=== PATIENT | female | born 1960 | race Caucasian/White ===

== ENCOUNTER 2019-01-13 15:43 | Emergency (ER) | payer MEDICAID ==
[~2019-01-13] VITALS: Ht 165.1 cm; Wt 66.4 kg
[~2019-01-13 15:43] MED LIST: HYDR-4383 PO
[2019-01-13] MEDS ORDERED: normal saline 1000ML IV soln IVB ONE (17:45)
[2019-01-13 18:31] LABS: BASOPHILS % (AUTO) 0.8 % (0-1); EOSINOPHILS # (AUTO) 0.1 X10'3 (0-0.9); EOSINOPHILS % (AUTO) 1.8 % (0-6); HEMATOCRIT 37.7 % (35.0-45.0); HEMOGLOBIN 12.8 g/dl (12.0-16.0); LYMPHOCYTES # (AUTO) 0.8 X10'3 (1.1-4.8); LYMPHOCYTES % (AUTO) 16.5 % (21-51); MEAN CORPUSCULAR HEMOGLOBIN 30.5 PG (27.0-31.0); MEAN CORPUSCULAR HGB CONC 33.8 g/dL (33.0-36.5); MEAN PLATELET VOLUME 9.7 FL (7.4-10.4); MONOCYTES # (AUTO) 0.5 X10'3 (0-0.9); MONOCYTES % (AUTO) 10.1 % (2-12); NEUTROPHILS # (AUTO) 3.4 X10'3 (1.8-7.7); NEUTROPHILS % (AUTO) 70.8 % (42-75); PLATELET COUNT 170 X10'3 (140-440); RED BLOOD COUNT 4.19 X10'6 (4.20-5.60); RED CELL DISTRIBUTION WIDTH 13.6 % (11.5-14.5); WHITE BLOOD COUNT 4.9 X10'3 (4.5-11.0)
[2019-01-13 18:50] LABS: ALANINE AMINOTRANSFERASE 15 U/L (12-78); ALBUMIN 3.3 G/DL (3.4-5.0); ALBUMIN/GLOBULIN RATIO 0.9 (1.1-1.5); ALKALINE PHOSPHATASE 59 IU/L (46-116); ANION GAP 6 (8-16); ASPARTATE AMINO TRANSFERASE 25 U/L (10-37); BLOOD UREA NITROGEN 7 MG/DL (7-18); BUN/CREATININE RATIO 10.8 (6.6-38.0); CALCIUM 9.4 MG/DL (8.5-10.1); CHLORIDE 103 MMOL/L (99-107); CREATININE 0.65 MG/DL (0.40-0.90); GLUCOSE 147 MG/DL (70-104); POTASSIUM 3.3 MMOL/L (3.5-5.1); SODIUM 141 MMOL/L (135-145); TOTAL CARBON DIOXIDE 32.4 MMOL/L (24-32); eGFR > 90 ML/MIN
[2019-01-13] MEDS ORDERED: POTA20TA19 PO (19:00)
[2019-01-13] MEDS ORDERED: ONDA4TAB12 PO (19:00)
[2019-01-13 19:19] VITALS: BP 90/54
== END 2019-01-13 19:25 | disposition home or self-care (01) ==
LOC: ER 15:44
DX: E87.6 Hypokalemia (principal); E86.0 Dehydration; F32.9 Major depressive disorder, single episode, unspecified; Z88.2 Allergy status to sulfonamides; Z79.899 Other long term (current) drug therapy
CPT/HCPCS: 36415; 80053; 85025; 93005; 96360; 99284; J7030

== ENCOUNTER 2019-03-08 06:03 | Inpatient (IN) | payer MEDICAID ==
[~2019-03-08] VITALS: Ht 165.1 cm; Wt 61.0 kg
[~2019-03-08 06:03] MED LIST changes: +ONDA4TAB12 PO
[2019-03-08] MEDS ORDERED: NO HOME MEDS (06:10)
[2019-03-08 06:31] LABS: BASOPHILS % (AUTO) 0.4 % (0-1); EOSINOPHILS % (AUTO) 0.5 % (0-6); HEMOGLOBIN 13.9 g/dl (12.0-16.0); LYMPHOCYTES # (AUTO) 0.6 X10'3 (1.1-4.8); LYMPHOCYTES % (AUTO) 10.4 % (21-51); MEAN CORPUSCULAR HEMOGLOBIN 31.3 PG (27.0-31.0); MEAN CORPUSCULAR HGB CONC 33.9 g/dL (33.0-36.5); MEAN CORPUSCULAR VOLUME 92.2 FL (78-98); MEAN PLATELET VOLUME 9.5 FL (7.4-10.4); MONOCYTES # (AUTO) 0.3 X10'3 (0-0.9); NEUTROPHILS # (AUTO) 4.9 X10'3 (1.8-7.7); NEUTROPHILS % (AUTO) 83.7 % (42-75); PLATELET COUNT 196 X10'3 (140-440); RED BLOOD COUNT 4.44 X10'6 (4.20-5.60); RED CELL DISTRIBUTION WIDTH 14.4 % (11.5-14.5); WHITE BLOOD COUNT 5.9 X10'3 (4.5-11.0)
[2019-03-08 06:37] LABS: ALANINE AMINOTRANSFERASE 24 U/L (12-78); ALBUMIN 3.7 G/DL (3.4-5.0); ALBUMIN/GLOBULIN RATIO 0.9 (1.1-1.5); ALKALINE PHOSPHATASE 71 IU/L (46-116); ANION GAP 9 (8-16); ASPARTATE AMINO TRANSFERASE 26 U/L (10-37); BILIRUBIN,TOTAL 0.6 MG/DL (0.1-1.0); BLOOD UREA NITROGEN 21 MG/DL (7-18); BUN/CREATININE RATIO 27.6 (6.6-38.0); CALCIUM 9.5 MG/DL (8.5-10.1); CHLORIDE 104 MMOL/L (99-107); CREATININE 0.76 MG/DL (0.40-0.90); GLUCOSE 146 MG/DL (70-104); POTASSIUM 4.2 MMOL/L (3.5-5.1); SODIUM 140 MMOL/L (135-145); TOTAL CARBON DIOXIDE 26.9 MMOL/L (24-32); TOTAL PROTEIN 7.8 G/DL (6.4-8.2); eGFR 78 ML/MIN
[2019-03-08] MEDS ORDERED: ketorolac trometh inj. 60 MG/2 ML VIAL IM ONE (06:40)
[2019-03-08] MEDS ORDERED: ondansetron/PF 4mg/2ml inj IV ONE (06:40)
[2019-03-08 06:51] LABS: URINE HCG NEGATIVE (NEG)
[2019-03-08 06:53] LABS: CLARITY,URINE CLOUDY (Clear); COLOR,URINE YELLOW (Yellow); GLUCOSE, URINE NEGATIVE (Neg); KETONES,URINE TRACE mg/dl (Neg); LEUKOCYTE ESTERASE ,URINE TRACE (Neg); NITRITES, URINE NEGATIVE (Neg); OCCULT BLOOD,URINE LARGE (Neg); PH,URINE 5.5 (4.8-8.0); PROTEIN,URINE 30 mg/dl (Neg); UROBILINOGEN,URINE 0.2 E.U/dL (0.2-1.0)
[2019-03-08] MEDS ORDERED: normal saline 1000ML IV soln IVB ONE (06:55)
[2019-03-08 06:56] LABS: UA COLLECTION TYPE CLN CATCH MIDSTREAM
--- NOTE | 2019-03-08 06:59 | NUR ---
o2 sat while pt sleeping dropped to 60% on ra. aware
[2019-03-08 07:09] LABS: CAL OXALATE CRYSTALS 1+ /HPF (NEGATIVE)
[2019-03-08 07:10] LABS: BACTERIA,URINE 2+ /HPF (Neg); MUCUS STRANDS FEW /LPF (Neg); RBC,URINE TNTC /HPF (0-2); SQUAMOUS EPITHELIAL CELL,UR FEW /LPF (FEW); TRANSITIONAL EPI CELLS,URINE FEW /HPF
[2019-03-08] MEDS ORDERED: CefTRIAXone 2gm/D5W 50ml 50 ML IV ONE (07:40)
[2019-03-08] MEDS ORDERED: normal saline 1000ml 1,000 ML IV SCH (09:14)
[2019-03-08] MEDS ORDERED: potassium Cl 20 mEq SR tablet PO PRN ×2 (09:15)
[2019-03-08] MEDS ORDERED: potassium CL 10mEq/100ml bag 100 ML IV PRN ×2 (09:15)
[2019-03-08] MEDS ORDERED: magnesium Cl slow-release 64mg tablet PO PRN (09:15)
[2019-03-08] MEDS ORDERED: magnesium 2GM in 50ml NS 50 ML IV PRN (09:15)
[2019-03-08] MEDS ORDERED: ondansetron/PF 4mg/2ml inj IV PRN (09:15)
[2019-03-08] MEDS ORDERED: morphine 2 MG/ML inj. syringe IV PRN ×2 (09:15)
[2019-03-08] MEDS ORDERED: magnesium hydroxide 30ml (MOM) UD suspension PO PRN (09:15)
[2019-03-08] MEDS ORDERED: acetaminophen 325mg tablet PO PRN (09:15)
[2019-03-08] MEDS ORDERED: HYDROcodone/acetaminophen 5mg/325mg tablet PO PRN (09:15)
[2019-03-08] MEDS ORDERED: mag hydrox/Alum hydrox/simeth 30ml oral suspension PO PRN (09:15)
[2019-03-08] MEDS ORDERED: magnesium 4gm in 100ml NS 100 ML IV PRN (09:15)
--- NOTE | 2019-03-08 13:05 | NUR ---
DR RON CALLED PT KEEPS INQUIRING TO EAT. REPORTS THAT IF PT PAIN MODERATELY CONTROLLED PT MAY EAT BUT WILL NOT BE ABLE TO HAVE PROCEEDURE UNTIL TOMORROW. PT WANTING TO CALL HER SISTER BEFORE SHE MAKES DECISION. REPORTING OFF TO PRIMARY RN JANINE.
[2019-03-08] MEDS ORDERED: MULT1TAB74 PO (13:34)
[2019-03-08 13:56] VITALS: BP 116/74
--- NOTE | 2019-03-08 13:57 | NUR ---
RECEIVED REPORT FROM MADIE MEHTA IN ED. PATIENT ARRIVED TO ROOM 350B, VITAL SIGNS STABLE, PT REPORTS MINIMAL PAIN. WILL CONTINUE TO MONITOR.
[2019-03-08] MEDS: normal saline 1000ml 1,000 ML IV SCH (17:24)
--- NOTE | 2019-03-08 18:26 | NUR ---
Problems reprioritized. Patient report given, questions answered & plan of care reviewed with Roselyn Cárdenas RN.
[2019-03-08 20:00] VITALS: BP 125/76
[2019-03-08] MEDS: heparin, porcine 5000 units/ml vial SQ SCH (20:59)
[2019-03-08] MEDS: tamsulosin 0.4mg capsule PO SCH (20:59)
[2019-03-08 23:22] VITALS: BP 110/65
[2019-03-09] MEDS: normal saline 1000ml 1,000 ML IV SCH ×2 (02:51→15:40)
[2019-03-09 06:02] LABS: BASOPHILS % (AUTO) 0.9 % (0-1); EOSINOPHILS # (AUTO) 0.1 X10'3 (0-0.9); EOSINOPHILS % (AUTO) 4.5 % (0-6); HEMATOCRIT 31.1 % (35.0-45.0); HEMOGLOBIN 10.5 g/dl (12.0-16.0); LYMPHOCYTES # (AUTO) 0.8 X10'3 (1.1-4.8); MEAN CORPUSCULAR HEMOGLOBIN 31.3 PG (27.0-31.0); MEAN CORPUSCULAR HGB CONC 33.9 g/dL (33.0-36.5); MEAN CORPUSCULAR VOLUME 92.5 FL (78-98); MEAN PLATELET VOLUME 9.3 FL (7.4-10.4); MONOCYTES # (AUTO) 0.3 X10'3 (0-0.9); NEUTROPHILS # (AUTO) 2.1 X10'3 (1.8-7.7); NEUTROPHILS % (AUTO) 62.6 % (42-75); PLATELET COUNT 144 X10'3 (140-440); RED BLOOD COUNT 3.36 X10'6 (4.20-5.60); RED CELL DISTRIBUTION WIDTH 14.3 % (11.5-14.5); WHITE BLOOD COUNT 3.3 X10'3 (4.5-11.0)
--- NOTE | 2019-03-09 06:20 | NUR ---
Problems reprioritized. Patient report given, questions answered & plan of care reviewed with MADIE Meyer.
[2019-03-09 06:32] LABS: ALBUMIN 2.6 G/DL (3.4-5.0); ANION GAP 6 (8-16); BLOOD UREA NITROGEN 14 MG/DL (7-18); BUN/CREATININE RATIO 25.5 (6.6-38.0); CALCIUM 8.9 MG/DL (8.5-10.1); CHLORIDE 109 MMOL/L (99-107); CREATININE 0.55 MG/DL (0.40-0.90); GLUCOSE 97 MG/DL (70-104); MAGNESIUM 1.8 MG/DL (1.5-2.4); SODIUM 143 MMOL/L (135-145); TOTAL CARBON DIOXIDE 27.8 MMOL/L (24-32); eGFR > 90 ML/MIN
--- NOTE | 2019-03-09 06:45 | NUR ---
Patient in room [facility]. I have received report from Roselyn Cárdenas RN and had the opportunity to ask questions and assume patient care.
[2019-03-09] MEDS: heparin, porcine 5000 units/ml vial SQ SCH ×2 (07:48→20:40)
[2019-03-09] MEDS: CefTRIAXone 2gm/D5W 50ml 50 ML IV SCH (07:48)
[2019-03-09 08:00] VITALS: BP 100/64
[2019-03-09] MEDS: K and/or MAG REPLACEMENT MC SCH (08:00)
[2019-03-09 12:00] VITALS: BP 93/53
[2019-03-09 18:00] VITALS: BP 127/80
--- NOTE | 2019-03-09 18:46 | NUR ---
Problems reprioritized. Patient report given, questions answered & plan of care reviewed with MADIE Cavanaugh.
--- NOTE | 2019-03-09 18:47 | NUR ---
Patient in room [facility]. I have received report from MADIE Meyer and had the opportunity to ask questions and assume patient care.
[2019-03-09] MEDS: acetaminophen 325mg tablet PO PRN (20:41)
[2019-03-09] MEDS: tamsulosin 0.4mg capsule PO SCH (20:41)
[2019-03-10] VITALS: BP 117/81
[2019-03-10] MEDS: normal saline 1000ml 1,000 ML IV SCH ×3 (00:42→20:47)
--- NOTE | 2019-03-10 06:25 | NUR ---
Problems reprioritized. Patient report given, questions answered & plan of care reviewed with MADIE Dial.
--- NOTE | 2019-03-10 06:30 | NUR ---
Patient in room [facility]. I have received report from Yojana RAMACHANDRAN and had the opportunity to ask questions and assume patient care.
[2019-03-10 07:00] VITALS: BP 106/68
--- NOTE | 2019-03-10 07:07 | NUR ---
Patient in room [facility]. I have received report from Mao RAMACHANDRAN and had the opportunity to ask questions and assume patient care.
[2019-03-10] MEDS: K and/or MAG REPLACEMENT MC SCH (07:52)
[2019-03-10] MEDS: CefTRIAXone 2gm/D5W 50ml 50 ML IV SCH (07:54)
[2019-03-10] MEDS: heparin, porcine 5000 units/ml vial SQ SCH ×2 (07:55→20:41)
[2019-03-10 08:08] LABS: BASOPHILS % (AUTO) 1.3 % (0-1); EOSINOPHILS # (AUTO) 0.2 X10'3 (0-0.9); EOSINOPHILS % (AUTO) 7.3 % (0-6); HEMATOCRIT 37.4 % (35.0-45.0); HEMOGLOBIN 12.6 g/dl (12.0-16.0); LYMPHOCYTES # (AUTO) 0.8 X10'3 (1.1-4.8); LYMPHOCYTES % (AUTO) 26.9 % (21-51); MEAN CORPUSCULAR HEMOGLOBIN 31.1 PG (27.0-31.0); MEAN CORPUSCULAR HGB CONC 33.6 g/dL (33.0-36.5); MEAN CORPUSCULAR VOLUME 92.5 FL (78-98); MEAN PLATELET VOLUME 9.1 FL (7.4-10.4); MONOCYTES # (AUTO) 0.3 X10'3 (0-0.9); MONOCYTES % (AUTO) 10.7 % (2-12); NEUTROPHILS # (AUTO) 1.7 X10'3 (1.8-7.7); NEUTROPHILS % (AUTO) 53.8 % (42-75); PLATELET COUNT 161 X10'3 (140-440); RED BLOOD COUNT 4.04 X10'6 (4.20-5.60); RED CELL DISTRIBUTION WIDTH 14.6 % (11.5-14.5); WHITE BLOOD COUNT 3.1 X10'3 (4.5-11.0)
[2019-03-10 08:20] LABS: ALBUMIN 2.9 G/DL (3.4-5.0); ANION GAP 4 (8-16); BLOOD UREA NITROGEN 8 MG/DL (7-18); BUN/CREATININE RATIO 16.3 (6.6-38.0); CALCIUM 9.3 MG/DL (8.5-10.1); CHLORIDE 109 MMOL/L (99-107); CREATININE 0.49 MG/DL (0.40-0.90); GLUCOSE 89 MG/DL (70-104); MAGNESIUM 1.6 MG/DL (1.5-2.4); SODIUM 142 MMOL/L (135-145); TOTAL CARBON DIOXIDE 29.3 MMOL/L (24-32); eGFR > 90 ML/MIN
[2019-03-10] MEDS: acetaminophen 325mg tablet PO PRN (10:47)
[2019-03-10 11:00] VITALS: BP 96/56
--- NOTE | 2019-03-10 16:47 | NUR ---
Student documentation: I have reviewed all interventions, assessments performed and documented by Ryan LOCKWOOD
[2019-03-10 17:04] VITALS: BP 114/76
[2019-03-10 18:00] VITALS: BP 126/79
[2019-03-10] MEDS ORDERED: FLU VACC QS2019-20 36MOS UP/PF 60 MCG/0.5 ML SYRINGE IMVAC ONE (18:00)
--- NOTE | 2019-03-10 18:30 | NUR ---
Patient in room [facility]. I have received report from MADEI Dial and had the opportunity to ask questions and assume patient care.
[2019-03-10] MEDS: tamsulosin 0.4mg capsule PO SCH (20:40)
[2019-03-11 00:51] VITALS: BP 119/72
[2019-03-11 05:19] LABS: BASOPHILS % (AUTO) 1.3 % (0-1); EOSINOPHILS # (AUTO) 0.2 X10'3 (0-0.9); EOSINOPHILS % (AUTO) 7.7 % (0-6); HEMOGLOBIN 10.9 g/dl (12.0-16.0); LYMPHOCYTES # (AUTO) 0.7 X10'3 (1.1-4.8); MEAN CORPUSCULAR HEMOGLOBIN 31.5 PG (27.0-31.0); MEAN CORPUSCULAR HGB CONC 34.2 g/dL (33.0-36.5); MEAN CORPUSCULAR VOLUME 92.2 FL (78-98); MEAN PLATELET VOLUME 8.6 FL (7.4-10.4); MONOCYTES # (AUTO) 0.3 X10'3 (0-0.9); MONOCYTES % (AUTO) 10.7 % (2-12); NEUTROPHILS # (AUTO) 1.7 X10'3 (1.8-7.7); NEUTROPHILS % (AUTO) 57.3 % (42-75); PLATELET COUNT 155 X10'3 (140-440); RED BLOOD COUNT 3.47 X10'6 (4.20-5.60); RED CELL DISTRIBUTION WIDTH 14.6 % (11.5-14.5); WHITE BLOOD COUNT 2.9 X10'3 (4.5-11.0)
[2019-03-11 05:31] LABS: ALBUMIN 2.6 G/DL (3.4-5.0); ANION GAP 4 (8-16); BLOOD UREA NITROGEN 7 MG/DL (7-18); BUN/CREATININE RATIO 12.5 (6.6-38.0); CALCIUM 9.4 MG/DL (8.5-10.1); CHLORIDE 113 MMOL/L (99-107); CREATININE 0.56 MG/DL (0.40-0.90); GLUCOSE 91 MG/DL (70-104); MAGNESIUM 1.7 MG/DL (1.5-2.4); POTASSIUM 4.3 MMOL/L (3.5-5.1); SODIUM 148 MMOL/L (135-145); eGFR > 90 ML/MIN
[2019-03-11] MEDS: normal saline 1000ml 1,000 ML IV SCH (05:50)
--- NOTE | 2019-03-11 06:27 | NUR ---
Problems reprioritized. Patient report given, questions answered & plan of care reviewed with MADIE Dial.
[2019-03-11 06:34] LABS: ANISOCYTOSIS 1+; PLATELET ESTIMATE NORMAL; TOTAL CELLS COUNTED 100
--- NOTE | 2019-03-11 07:05 | NUR ---
Patient in room [facility]. I have received report from Mao RAMACHANDRAN and had the opportunity to ask questions and assume patient care.
[2019-03-11] MEDS: CefTRIAXone 2gm/D5W 50ml 50 ML IV SCH (09:20)
[2019-03-11] MEDS: heparin, porcine 5000 units/ml vial SQ SCH (09:21)
[2019-03-11] MEDS ORDERED: tamsulosin capsule PO (11:27)
[2019-03-11] MEDS ORDERED: AMOX-419 PO (11:42)
== END 2019-03-11 14:10 | disposition home or self-care (01) | DRG 463 ==
LOC: ER 06:04 → ED HOLD 09:28 → SUR 3N 13:36
PROVIDERS: ADMIT Hospitalist; ATTEND Hospitalist
DX: N13.6 Pyonephrosis (principal); J90 Pleural effusion, not elsewhere classified; F32.9 Major depressive disorder, single episode, unspecified; K59.00 Constipation, unspecified; G47.30 Sleep apnea, unspecified; Z88.2 Allergy status to sulfonamides; Z83.3 Family history of diabetes mellitus; Z84.1 Family history of disorders of kidney and ureter; Z87.442 Personal history of urinary calculi; Z90.49 Acquired absence of other specified parts of digestive tract
CPT/HCPCS: 36415; 74176; 80048; 80053; 81001; 81025; 83735; 85025; 85610; 87081; 87088; 96361; 96365; 96375; 99285; G0378; J0696; J1644; J1885; J2405; J7030; Q2037

== ENCOUNTER 2019-07-22 14:30 | Emergency (ER) | payer MEDICAID ==
[~2019-07-22] VITALS: Ht 165.1 cm; Wt 54.5 kg
[~2019-07-22 14:30] MED LIST changes: -HYDR-4383 PO; +MULT1TAB74 PO; -ONDA4TAB12 PO; +tamsulosin capsule PO
--- NOTE | 2019-07-22 14:55 | NUR ---
Pt ambulated to the restroom without any difficulty.
[2019-07-22] MEDS ORDERED: acetaminophen 325mg tablet PO ONE (15:30)
[2019-07-22 15:51] VITALS: BP 112/54
== END 2019-07-22 16:24 | disposition home or self-care (01) ==
LOC: ER 14:30
DX: S00.01XA Abrasion of scalp, initial encounter (principal); F32.9 Major depressive disorder, single episode, unspecified; Z88.2 Allergy status to sulfonamides; Z79.899 Other long term (current) drug therapy; Y93.89 Activity, other specified; W18.39XA Other fall on same level, initial encounter; Y92.89 Other specified places as the place of occurrence of the external cause; Y99.8 Other external cause status
CPT/HCPCS: 99283

== ENCOUNTER 2021-12-28 23:41 | Emergency (ER) | payer OTHER, MEDICAID ==
[~2021-12-28] VITALS: Ht 165.1 cm; Wt 68.2 kg
[~2021-12-28 23:41] MED LIST changes: +MULT-620 PO; -MULT1TAB74 PO
[2021-12-28] MEDS ORDERED: acetaminophen 325mg tablet PO ONE (23:55)
[2021-12-29 01:14] LABS: BASOPHILS % (AUTO) 0.8 % (0-1); EOSINOPHILS # (AUTO) 0.1 X10'3 (0-0.9); EOSINOPHILS % (AUTO) 2.9 % (0-6); HEMOGLOBIN 12.9 g/dl (12.0-16.0); LYMPHOCYTES # (AUTO) 0.7 X10'3 (1.1-4.8); LYMPHOCYTES % (AUTO) 15.5 % (21-51); MEAN CORPUSCULAR HGB CONC 33.1 g/dL (33.0-36.5); MEAN CORPUSCULAR VOLUME 90.7 FL (78-98); MEAN PLATELET VOLUME 9.3 FL (7.4-10.4); MONOCYTES # (AUTO) 0.4 X10'3 (0-0.9); MONOCYTES % (AUTO) 8.5 % (2-12); NEUTROPHILS # (AUTO) 3.1 X10'3 (1.8-7.7); NEUTROPHILS % (AUTO) 72.3 % (42-75); PLATELET COUNT 182 X10'3 (140-440); WHITE BLOOD COUNT 4.3 X10'3 (4.5-11.0)
[2021-12-29 01:21] LABS: ALBUMIN 3.5 G/DL (3.4-5.0); ANION GAP 6 (8-16); BILIRUBIN,TOTAL 0.6 MG/DL (0.1-1.0); BLOOD UREA NITROGEN 12 MG/DL (7-18); BUN/CREATININE RATIO 12.4 (6.6-38.0); CALCIUM 9.4 MG/DL (8.5-10.1); CHLORIDE 104 MMOL/L (99-107); CREATININE 0.97 MG/DL (0.40-0.90); GLUCOSE 141 MG/DL (70-104); POTASSIUM 4.2 MMOL/L (3.5-5.1); SODIUM 142 MMOL/L (135-145); TOTAL CARBON DIOXIDE 32.3 MMOL/L (24-32); TOTAL PROTEIN 7.5 G/DL (6.4-8.2); eGFR 59 ML/MIN
[2021-12-29 01:22] LABS: ALANINE AMINOTRANSFERASE 6 U/L (12-78); ALBUMIN/GLOBULIN RATIO 0.9 (1.1-1.5); ALKALINE PHOSPHATASE 83 IU/L (46-116); ASPARTATE AMINO TRANSFERASE 21 U/L (10-37); ETHANOL < 0.010 GM/DL (0.0-0.010)
--- NOTE | 2021-12-29 01:29 | NUR ---
PT COMPLAINING OF CP AND PALPITATIONS. AWARE.
[2021-12-29] MEDS ORDERED: bacitracin 15gm ointment TP ONE (01:35)
[2021-12-29] MEDS ORDERED: MORP15TA PO (02:09)
[2021-12-29 02:46] VITALS: BP 93/68
[2022-01-02] MEDS ORDERED: HYDR-3972 PO ×2 (18:14→19:52)
== END 2021-12-29 02:22 | disposition home or self-care (01) ==
LOC: ER 23:42
DX: S00.81XA Abrasion of other part of head, initial encounter (principal); S00.31XA Abrasion of nose, initial encounter; S80.212A Abrasion, left knee, initial encounter; Z88.2 Allergy status to sulfonamides; Z79.899 Other long term (current) drug therapy; W01.0XXA Fall on same level from slipping, tripping and stumbling without subsequent striking against object, initial encounter; Y93.01 Activity, walking, marching and hiking; Y92.098 Other place in other non-institutional residence as the place of occurrence of the external cause; Y99.8 Other external cause status
CPT/HCPCS: 36415; 72125; 73090; 73564; 80053; 80320; 85025; 99285

== ENCOUNTER 2023-08-14 17:30 | Inpatient (IN) | payer OTHER, MEDICAID ==
[~2023-08-14] VITALS: Ht 165.1 cm; Wt 54.0 kg
[~2023-08-14 17:30] MED LIST changes: +HYDR-3972 PO
[2023-08-14 18:18] LABS: BASOPHILS % (AUTO) 0.7 % (0-1); EOSINOPHILS # (AUTO) 0.1 X10'3 (0-0.9); EOSINOPHILS % (AUTO) 1.7 % (0-6); HEMATOCRIT 41.1 % (35.0-45.0); HEMOGLOBIN 13.7 g/dl (12.0-16.0); LYMPHOCYTES # (AUTO) 0.7 X10'3 (1.1-4.8); LYMPHOCYTES % (AUTO) 14.9 % (21-51); MEAN CORPUSCULAR HGB CONC 33.3 g/dL (33.0-36.5); MEAN CORPUSCULAR VOLUME 93.1 FL (78-98); MEAN PLATELET VOLUME 8.9 FL (7.4-10.4); MONOCYTES # (AUTO) 0.3 X10'3 (0-0.9); MONOCYTES % (AUTO) 6.7 % (2-12); NEUTROPHILS # (AUTO) 3.6 X10'3 (1.8-7.7); PLATELET COUNT 151 X10'3 (140-440); RED BLOOD COUNT 4.41 X10'6 (4.20-5.60); RED CELL DISTRIBUTION WIDTH 14.9 % (11.5-14.5); WHITE BLOOD COUNT 4.7 X10'3 (4.5-11.0)
[2023-08-14 18:32] LABS: ANION GAP 9 (8-16); BLOOD UREA NITROGEN 17 MG/DL (7-18); CALCIUM 9.2 MG/DL (8.5-10.1); CHLORIDE 108 MMOL/L (99-107); CREATININE 0.74 MG/DL (0.40-0.90); GLUCOSE 119 MG/DL (70-104); POTASSIUM 4.9 MMOL/L (3.5-5.1); PRO BRAIN NATRIURETIC PEPTIDE 219 PG/ML (0-125); SODIUM 143 MMOL/L (135-145); TOTAL CARBON DIOXIDE 26.3 MMOL/L (24-32); eCRCL 68 ML/MIN; eGFR 80 ML/MIN
[2023-08-14 20:24] LABS: CREATINE KINASE 83 U/L (26-192)
[2023-08-14] MEDS ORDERED: potassium Cl 40MEQ/1/2NS 520ml 520 ML IV PRN (21:50)
[2023-08-14] MEDS ORDERED: potassium Cl 20 mEq SR tablet PO PRN ×2 (21:50)
[2023-08-14] MEDS ORDERED: ondansetron/PF 4mg/2ml inj IV PRN (21:50)
[2023-08-14] MEDS ORDERED: acetaminophen 325mg tablet PO PRN (21:50)
[2023-08-14] MEDS ORDERED: mag hydrox/Alum hydrox/simeth 30ml oral suspension PO PRN (21:50)
[2023-08-14] MEDS ORDERED: magnesium 4gm in 100ml NS 100 ML IV PRN (21:50)
[2023-08-14] MEDS ORDERED: magnesium Cl slow-release 64mg tablet PO PRN (21:50)
[2023-08-14] MEDS ORDERED: magnesium hydroxide 30ml (MOM) UD suspension PO PRN (21:50)
[2023-08-14] MEDS: normal saline 1000ml 1,000 ML IV SCH (23:11)
[2023-08-15] MEDS: diltiazem CD 120mg capsule (once-daily) PO SCH (01:05)
[2023-08-15 04:22] LABS: BASOPHILS % (AUTO) 0.8 % (0-1); EOSINOPHILS # (AUTO) 0.1 X10'3 (0-0.9); HEMOGLOBIN 12.2 g/dl (12.0-16.0); LYMPHOCYTES # (AUTO) 1.1 X10'3 (1.1-4.8); MEAN CORPUSCULAR HEMOGLOBIN 30.7 PG (27.0-31.0); MONOCYTES # (AUTO) 0.4 X10'3 (0-0.9); NEUTROPHILS # (AUTO) 2.1 X10'3 (1.8-7.7); WHITE BLOOD COUNT 3.7 X10'3 (4.5-11.0)
[2023-08-15 04:53] LABS: EOSINOPHILS % (AUTO) 2.8 % (0-6); HEMATOCRIT 36.3 % (35.0-45.0); LYMPHOCYTES % (AUTO) 29.5 % (21-51); MEAN CORPUSCULAR HGB CONC 33.5 g/dL (33.0-36.5); MEAN CORPUSCULAR VOLUME 91.7 FL (78-98); MEAN PLATELET VOLUME 9.9 FL (7.4-10.4); MONOCYTES % (AUTO) 10.3 % (2-12); NEUTROPHILS % (AUTO) 56.6 % (42-75); PLATELET COUNT 132 X10'3 (140-440); RED BLOOD COUNT 3.96 X10'6 (4.20-5.60); RED CELL DISTRIBUTION WIDTH 14.6 % (11.5-14.5)
[2023-08-15 07:17] VITALS: BP 108/61; PULSE 71; RESP 15; TEMP 97.8; O2SAT 96
[2023-08-15] MEDS: heparin, porcine 5000 units/ml vial SQ SCH (07:37)
[2023-08-15 08:57] VITALS: RESP 15; O2SAT 96
[2023-08-15 10:00] VITALS: BP 103/42; PULSE 63; RESP 16; TEMP 98.2; O2SAT 95
[2023-08-15] MEDS: tamsulosin 0.4mg capsule PO SCH (20:15)
[2023-08-15 20:21] LABS: BILIRUBIN,URINE NEGATIVE (Neg); CLARITY,URINE SLIGHTLY CLOUDY (Clear); COLOR,URINE STRAW (Yellow); GLUCOSE, URINE NEGATIVE (Neg); KETONES,URINE NEGATIVE (Neg); LEUKOCYTE ESTERASE ,URINE SMALL (Neg); NITRITES, URINE NEGATIVE (Neg); OCCULT BLOOD,URINE SMALL (Neg); PH,URINE 6.5 (4.8-8.0); PROTEIN,URINE NEGATIVE (Neg); UROBILINOGEN,URINE 0.2 E.U/dL (0.2-1.0)
[2023-08-15 20:44] LABS: UA COLLECTION TYPE NON-SPECIFIED
[2023-08-15 20:45] LABS: SQUAMOUS EPITHELIAL CELL,UR MANY /LPF (FEW)
[2023-08-15 20:46] LABS: BACTERIA,URINE 1+ /HPF (Neg)
[2023-08-15 21:44] VITALS: BP 116/82; PULSE 89; RESP 16; TEMP 97.6; O2SAT 94
[2023-08-16 07:18] LABS: BASOPHILS % (AUTO) 0.8 % (0-1); EOSINOPHILS # (AUTO) 0.2 X10'3 (0-0.9); EOSINOPHILS % (AUTO) 5.8 % (0-6); HEMATOCRIT 34.5 % (35.0-45.0); HEMOGLOBIN 11.3 g/dl (12.0-16.0); LYMPHOCYTES # (AUTO) 0.9 X10'3 (1.1-4.8); LYMPHOCYTES % (AUTO) 28.1 % (21-51); MEAN CORPUSCULAR HEMOGLOBIN 30.3 PG (27.0-31.0); MEAN CORPUSCULAR HGB CONC 32.8 g/dL (33.0-36.5); MEAN CORPUSCULAR VOLUME 92.2 FL (78-98); MEAN PLATELET VOLUME 9.3 FL (7.4-10.4); MONOCYTES # (AUTO) 0.3 X10'3 (0-0.9); MONOCYTES % (AUTO) 8.5 % (2-12); NEUTROPHILS # (AUTO) 1.8 X10'3 (1.8-7.7); NEUTROPHILS % (AUTO) 56.8 % (42-75); PLATELET COUNT 128 X10'3 (140-440); RED BLOOD COUNT 3.74 X10'6 (4.20-5.60); RED CELL DISTRIBUTION WIDTH 14.5 % (11.5-14.5); WHITE BLOOD COUNT 3.1 X10'3 (4.5-11.0)
[2023-08-16 07:24] LABS: ALANINE AMINOTRANSFERASE 12 U/L (12-78); ALBUMIN 2.4 G/DL (3.4-5.0); ALBUMIN/GLOBULIN RATIO 0.8 (1.1-1.5); ALKALINE PHOSPHATASE 67 IU/L (46-116); ANION GAP 5 (8-16); ASPARTATE AMINO TRANSFERASE 23 U/L (10-37); BILIRUBIN,TOTAL 0.6 MG/DL (0.1-1.0); BLOOD UREA NITROGEN 12 MG/DL (7-18); BUN/CREATININE RATIO 20.3 (10.0-20.0); CHLORIDE 111 MMOL/L (99-107); CREATININE 0.59 MG/DL (0.40-0.90); GLUCOSE 97 MG/DL (70-104); POTASSIUM 4.1 MMOL/L (3.5-5.1); SODIUM 148 MMOL/L (135-145); TOTAL PROTEIN 5.5 G/DL (6.4-8.2); eCRCL 85 ML/MIN; eGFR > 90 ML/MIN
[2023-08-16] MEDS: multivitamins, therapeutics tablet PO SCH (08:59)
[2023-08-16 10:00] VITALS: BP 91/50; PULSE 73; RESP 18; TEMP 97.5; O2SAT 93
[2023-08-16] MEDS ORDERED: normal saline 1000ml 1,000 ML IV ONE (14:35)
[2023-08-16] MEDS: FOSFOMYCIN TROMETHAMINE 3 GM PACKET PO ONE (15:50)
== END 2023-08-16 16:26 | disposition home health service (06) | DRG 93 ==
LOC: ER 17:30 → ED HOLD 21:53 → ORTHO 4S 08-15 07:00
PROVIDERS: ADMIT Surgery Surgical Critical Care; ATTEND Family Medicine
DX: G71.11 Myotonic muscular dystrophy (principal); F32.A Depression, unspecified; I48.0 Paroxysmal atrial fibrillation; Z88.2 Allergy status to sulfonamides; Z90.49 Acquired absence of other specified parts of digestive tract; Z90.710 Acquired absence of both cervix and uterus
CPT/HCPCS: 36415; 70450; 71045; 80048; 80053; 81001; 82550; 83880; 84484; 85025; 87081; 93005; 93306; 97161; 97530; 99285; G0378; J1644; J7030

== ENCOUNTER 2023-12-13 22:38 | Emergency (ER) | payer OTHER, MEDICAID ==
[~2023-12-13] VITALS: Ht 165.1 cm; Wt 52.3 kg
[~2023-12-13 22:38] MED LIST changes: +ASPI-1265 PO; +METO-395 PO; +MIDO2.5T14 PO
[2023-12-13 22:41] VITALS: TEMP 98
[2023-12-13 23:21] LABS: BASOPHILS % (AUTO) 0.6 % (0-1); EOSINOPHILS # (AUTO) 0.2 X10'3 (0-0.9); EOSINOPHILS % (AUTO) 2.9 % (0-6); HEMATOCRIT 37.1 % (35.0-45.0); HEMOGLOBIN 12.2 g/dl (12.0-16.0); LYMPHOCYTES # (AUTO) 1.1 X10'3 (1.1-4.8); LYMPHOCYTES % (AUTO) 20.1 % (21-51); MEAN CORPUSCULAR HEMOGLOBIN 30.5 PG (27.0-31.0); MEAN CORPUSCULAR HGB CONC 32.9 g/dL (33.0-36.5); MEAN CORPUSCULAR VOLUME 92.7 FL (78-98); MEAN PLATELET VOLUME 9.2 FL (7.4-10.4); MONOCYTES # (AUTO) 0.4 X10'3 (0-0.9); MONOCYTES % (AUTO) 6.6 % (2-12); NEUTROPHILS # (AUTO) 3.8 X10'3 (1.8-7.7); NEUTROPHILS % (AUTO) 69.8 % (42-75); PLATELET COUNT 212 X10'3 (140-440); RED CELL DISTRIBUTION WIDTH 14.9 % (11.5-14.5); WHITE BLOOD COUNT 5.5 X10'3 (4.5-11.0)
[2023-12-13 23:34] LABS: ALANINE AMINOTRANSFERASE 35 U/L (12-78); ALBUMIN 2.9 G/DL (3.4-5.0); ALBUMIN/GLOBULIN RATIO 0.9 (1.1-1.5); ALKALINE PHOSPHATASE 70 IU/L (46-116); ANION GAP 5 (8-16); ASPARTATE AMINO TRANSFERASE 19 U/L (10-37); BILIRUBIN,TOTAL 0.4 MG/DL (0.1-1.0); BLOOD UREA NITROGEN 12 MG/DL (7-18); BUN/CREATININE RATIO 16.7 (10.0-20.0); CALCIUM 9.3 MG/DL (8.5-10.1); CHLORIDE 107 MMOL/L (99-107); CREATININE 0.72 MG/DL (0.40-0.90); GLUCOSE 140 MG/DL (70-104); POTASSIUM 4.2 MMOL/L (3.5-5.1); SODIUM 146 MMOL/L (135-145); TOTAL CARBON DIOXIDE 34.4 MMOL/L (24-32); TOTAL PROTEIN 6.3 G/DL (6.4-8.2); eCRCL 67 ML/MIN; eGFR 82 ML/MIN
[2023-12-14] MEDS ORDERED: HYDR-3965 PO (01:41)
[2023-12-14] MEDS: HYDROcodone/acetaminophen 5mg/325mg tablet PO ONE (01:59)
[2023-12-14 08:46] VITALS: BP 133/67; PULSE 77; RESP 16; O2SAT 94
== END 2023-12-14 08:50 | disposition home or self-care (01) ==
LOC: ER 22:39
DX: R53.1 Weakness (principal); M25.561 Pain in right knee; M79.661 Pain in right lower leg; M25.571 Pain in right ankle and joints of right foot; I48.91 Unspecified atrial fibrillation; F32.A Depression, unspecified; G71.09 Other specified muscular dystrophies; Z88.2 Allergy status to sulfonamides; Z79.82 Long term (current) use of aspirin; Z79.899 Other long term (current) drug therapy; Z79.1 Long term (current) use of non-steroidal anti-inflammatories (NSAID); W19.XXXA Unspecified fall, initial encounter; Y93.89 Activity, other specified; Y92.89 Other specified places as the place of occurrence of the external cause; Y99.8 Other external cause status
CPT/HCPCS: 36415; 73564; 73590; 73630; 80053; 85025; 93005; 99285; A6449; J7030

== ENCOUNTER 2023-12-22 00:19 | Emergency (ER) | payer OTHER, MEDICAID ==
[~2023-12-22] VITALS: Ht 160 cm; Wt 54.5 kg
[~2023-12-22 00:19] MED LIST changes: +HYDR-3965 PO
[2023-12-22 02:30] LABS: BASOPHILS # (AUTO) 0.1 X10'3 (0-0.2); BASOPHILS % (AUTO) 1.2 % (0-1); EOSINOPHILS # (AUTO) 0.1 X10'3 (0-0.9); HEMATOCRIT 34.6 % (35.0-45.0); HEMOGLOBIN 11.5 g/dl (12.0-16.0); LYMPHOCYTES # (AUTO) 0.8 X10'3 (1.1-4.8); LYMPHOCYTES % (AUTO) 16.4 % (21-51); MEAN CORPUSCULAR HEMOGLOBIN 30.6 PG (27.0-31.0); MEAN CORPUSCULAR HGB CONC 33.3 g/dL (33.0-36.5); MEAN PLATELET VOLUME 8.9 FL (7.4-10.4); MONOCYTES # (AUTO) 0.5 X10'3 (0-0.9); MONOCYTES % (AUTO) 9.9 % (2-12); NEUTROPHILS # (AUTO) 3.3 X10'3 (1.8-7.7); NEUTROPHILS % (AUTO) 70.5 % (42-75); PLATELET COUNT 137 X10'3 (140-440); RED BLOOD COUNT 3.76 X10'6 (4.20-5.60); RED CELL DISTRIBUTION WIDTH 15.4 % (11.5-14.5); WHITE BLOOD COUNT 4.7 X10'3 (4.5-11.0)
[2023-12-22 02:35] LABS: ANION GAP 5 (8-16); BLOOD UREA NITROGEN 9 MG/DL (7-18); BUN/CREATININE RATIO 14.1 (10.0-20.0); CALCIUM 9.3 MG/DL (8.5-10.1); CHLORIDE 108 MMOL/L (99-107); CREATININE 0.64 MG/DL (0.40-0.90); GLUCOSE 103 MG/DL (70-104); MAGNESIUM 1.9 MG/DL (1.5-2.4); POTASSIUM 4.4 MMOL/L (3.5-5.1); SODIUM 145 MMOL/L (135-145); TOTAL CARBON DIOXIDE 31.8 MMOL/L (24-32); eCRCL 75 ML/MIN; eGFR > 90 ML/MIN
[2023-12-22] MEDS: normal saline 1000ML IV soln IVB ONE (02:35)
[2023-12-22 06:23] VITALS: PULSE 71; TEMP 98.2; O2SAT 92
[2023-12-22 09:49] VITALS: BP 118/67; RESP 15
== END 2023-12-22 10:04 | disposition home or self-care (01) ==
LOC: ER 00:20
DX: R53.1 Weakness (principal); I48.91 Unspecified atrial fibrillation; F32.A Depression, unspecified; Z88.2 Allergy status to sulfonamides; Z79.82 Long term (current) use of aspirin; Z79.1 Long term (current) use of non-steroidal anti-inflammatories (NSAID); Z79.899 Other long term (current) drug therapy; W19.XXXA Unspecified fall, initial encounter; Y93.89 Activity, other specified; Y92.89 Other specified places as the place of occurrence of the external cause; Y99.8 Other external cause status
CPT/HCPCS: 36415; 73564; 73610; 80048; 83735; 84145; 85025; 99285; J7030

== ENCOUNTER 2024-06-05 14:09 | Inpatient (IN) | payer OTHER, MEDICAID ==
[~2024-06-05] VITALS: Ht 162.6 cm; Wt 45.5 kg
[~2024-06-05 14:09] MED LIST changes: -ASPI-1265 PO; -HYDR-3965 PO; -MIDO2.5T14 PO; +MIDO2.5T3 PO
[2024-06-05 15:27] LABS: EOSINOPHILS # (AUTO) 0.1 X10'3 (0-0.9); HEMATOCRIT 40.4 % (35.0-45.0); HEMOGLOBIN 13.4 g/dl (12.0-16.0); MEAN CORPUSCULAR HEMOGLOBIN 31.6 PG (27.0-31.0); MONOCYTES # (AUTO) 0.2 X10'3 (0-0.9); NEUTROPHILS # (AUTO) 2.2 X10'3 (1.8-7.7); NEUTROPHILS % (AUTO) 67.2 % (42-75); RED BLOOD COUNT 4.24 X10'6 (4.20-5.60); WHITE BLOOD COUNT 3.2 X10'3 (4.5-11.0)
[2024-06-05 15:28] LABS: ALANINE AMINOTRANSFERASE 21 U/L (12-78); ALBUMIN 2.9 G/DL (3.4-5.0); ALKALINE PHOSPHATASE 72 IU/L (46-116); ANION GAP 4 (8-16); ASPARTATE AMINO TRANSFERASE 22 U/L (10-37); BILIRUBIN,DIRECT 0.3 MG/DL (0-0.3); BLOOD UREA NITROGEN 9 MG/DL (7-18); BUN/CREATININE RATIO 19.1 (10.0-20.0); CALCIUM 9.2 MG/DL (8.5-10.1); CHLORIDE 108 MMOL/L (99-107); CREATINE KINASE 169 U/L (26-192); CREATININE 0.47 MG/DL (0.40-0.90); GLUCOSE 78 MG/DL (70-104); POTASSIUM 4.5 MMOL/L (3.5-5.1); SODIUM 147 MMOL/L (135-145); TOTAL CARBON DIOXIDE 34.9 MMOL/L (24-32); TOTAL PROTEIN 5.9 G/DL (6.4-8.2); eCRCL 89 ML/MIN; eGFR > 90 ML/MIN
[2024-06-05 15:29] LABS: BASOPHILS % (AUTO) 0.9 % (0-1); EOSINOPHILS % (AUTO) 1.9 % (0-6); LYMPHOCYTES # (AUTO) 0.7 X10'3 (1.1-4.8); LYMPHOCYTES % (AUTO) 23.3 % (21-51); MEAN CORPUSCULAR HGB CONC 33.2 g/dL (33.0-36.5); MEAN CORPUSCULAR VOLUME 95.1 FL (78-98); MEAN PLATELET VOLUME 9.9 FL (7.4-10.4); MONOCYTES % (AUTO) 6.7 % (2-12); PLATELET COUNT 149 X10'3 (140-440); RED CELL DISTRIBUTION WIDTH 14.9 % (11.5-14.5)
[2024-06-05] MEDS: normal saline 1000ML IV soln IVB ONE (15:34)
[2024-06-05] MEDS: ringers solution, lacted 1,000 ML IV ONE ×2 (15:48→22:28)
[2024-06-05 16:24] LABS: BILIRUBIN,URINE SMALL (Neg); CLARITY,URINE CLEAR (Clear); GLUCOSE, URINE NEGATIVE (Neg); KETONES,URINE NEGATIVE (Neg); LEUKOCYTE ESTERASE ,URINE NEGATIVE (Neg); OCCULT BLOOD,URINE NEGATIVE (Neg); PH,URINE 5.5 (4.8-8.0); PROTEIN,URINE NEGATIVE (Neg); UROBILINOGEN,URINE 0.2 E.U/dL (0.2-1.0)
[2024-06-05 16:25] LABS: COLOR,URINE DARK YELLOW (Yellow); NITRITES, URINE NEGATIVE (Neg); UA COLLECTION TYPE STRAIGHT CATH
[2024-06-05] MEDS ORDERED: mag hydrox/Alum hydrox/simeth 30ml oral suspension PO PRN (17:10)
[2024-06-05] MEDS ORDERED: morphine 2 MG/ML inj. syringe IV PRN ×2 (17:10)
[2024-06-05] MEDS ORDERED: magnesium hydroxide 30ml (MOM) UD suspension PO PRN (17:10)
[2024-06-05] MEDS ORDERED: acetaminophen 325mg tablet PO PRN ×2 (17:10)
[2024-06-05] MEDS ORDERED: ondansetron/PF 4mg/2ml inj IV PRN (17:10)
[2024-06-05] MEDS ORDERED: ASPI-1265 PO (17:51)
[2024-06-05 18:16] LABS: PRO BRAIN NATRIURETIC PEPTIDE 840 PG/ML (0-125)
[2024-06-05] MEDS: dextrose 5%-1/2 normal saline 1,000 ML IV SCH (19:45)
[2024-06-05] MEDS: docusate sod 100mg capsule PO SCH (20:00)
[2024-06-06 02:48] LABS: EOSINOPHILS # (AUTO) 0.2 X10'3 (0-0.9); HEMOGLOBIN 12.2 g/dl (12.0-16.0); LYMPHOCYTES # (AUTO) 0.9 X10'3 (1.1-4.8); MEAN CORPUSCULAR HEMOGLOBIN 31.8 PG (27.0-31.0); MONOCYTES # (AUTO) 0.5 X10'3 (0-0.9)
[2024-06-06 02:51] LABS: BASOPHILS % (AUTO) 0.8 % (0-1); EOSINOPHILS % (AUTO) 3.6 % (0-6); HEMATOCRIT 36.2 % (35.0-45.0); LYMPHOCYTES % (AUTO) 21.6 % (21-51); MEAN CORPUSCULAR HGB CONC 33.6 g/dL (33.0-36.5); MEAN CORPUSCULAR VOLUME 94.6 FL (78-98); MEAN PLATELET VOLUME 9.5 FL (7.4-10.4); MONOCYTES % (AUTO) 12.1 % (2-12); NEUTROPHILS # (AUTO) 2.6 X10'3 (1.8-7.7); NEUTROPHILS % (AUTO) 61.9 % (42-75); PLATELET COUNT 151 X10'3 (140-440); RED BLOOD COUNT 3.83 X10'6 (4.20-5.60); RED CELL DISTRIBUTION WIDTH 15.4 % (11.5-14.5); WHITE BLOOD COUNT 4.2 X10'3 (4.5-11.0)
[2024-06-06 03:00] LABS: ALBUMIN 2.4 G/DL (3.4-5.0); ANION GAP 0 (8-16); BLOOD UREA NITROGEN 10 MG/DL (7-18); BUN/CREATININE RATIO 15.9 (10.0-20.0); CALCIUM 8.8 MG/DL (8.5-10.1); CHLORIDE 109 MMOL/L (99-107); CREATININE 0.63 MG/DL (0.40-0.90); GLUCOSE 139 MG/DL (70-104); POTASSIUM 4.2 MMOL/L (3.5-5.1); SODIUM 145 MMOL/L (135-145); TOTAL CARBON DIOXIDE 35.9 MMOL/L (24-32); eCRCL 66 ML/MIN; eGFR > 90 ML/MIN
[2024-06-06 07:34] VITALS: BP 111/69; PULSE 83; RESP 21; TEMP 97.4; O2SAT 83
[2024-06-06] MEDS: multivitamins, therapeutics tablet PO SCH (08:46)
[2024-06-06] MEDS: enoxaparin 40mg/0.4ml syringe SUBCUT SCH (08:47)
[2024-06-06] MEDS: HYDROcodone/acetaminophen 5mg/325mg tablet PO PRN (08:56)
[2024-06-06 10:00] VITALS: BP 86/58; PULSE 71; RESP 16; TEMP 97.1; O2SAT 90
[2024-06-06] MEDS: normal saline 500ml IV soln 500 ML IV ONE (10:30)
[2024-06-06 11:11] VITALS: RESP 21
[2024-06-06 11:40] VITALS: BP 98/56; PULSE 80
[2024-06-06 18:00] VITALS: BP 96/69; PULSE 87; RESP 16; TEMP 97.7; O2SAT 98
[2024-06-06] MEDS: lactose-reduced food (Ensure Enlive) - 237ml bottle PO SCH (18:29)
[2024-06-06] MEDS: FLU VACC TS2024-25(6MOS UP)/PF 45 MCG/0.5 ML SYRINGE IMVAC ONE (19:00)
[2024-06-06 20:00] VITALS: RESP 16; O2SAT 98
[2024-06-07 06:00] VITALS: BP 106/69; PULSE 82; RESP 16; TEMP 96.2; O2SAT 99
[2024-06-07 06:21] LABS: EOSINOPHILS # (AUTO) 0.1 X10'3 (0-0.9); HEMOGLOBIN 12.7 g/dl (12.0-16.0); NEUTROPHILS # (AUTO) 2.6 X10'3 (1.8-7.7); WHITE BLOOD COUNT 3.9 X10'3 (4.5-11.0)
[2024-06-07 06:23] LABS: BASOPHILS % (AUTO) 0.5 % (0-1); EOSINOPHILS % (AUTO) 3.4 % (0-6); HEMATOCRIT 38.3 % (35.0-45.0); LYMPHOCYTES # (AUTO) 0.7 X10'3 (1.1-4.8); LYMPHOCYTES % (AUTO) 16.8 % (21-51); MEAN CORPUSCULAR HEMOGLOBIN 31.8 PG (27.0-31.0); MEAN CORPUSCULAR HGB CONC 33.2 g/dL (33.0-36.5); MEAN CORPUSCULAR VOLUME 95.8 FL (78-98); MEAN PLATELET VOLUME 9.9 FL (7.4-10.4); MONOCYTES # (AUTO) 0.5 X10'3 (0-0.9); MONOCYTES % (AUTO) 12.2 % (2-12); NEUTROPHILS % (AUTO) 67.1 % (42-75); PLATELET COUNT 142 X10'3 (140-440); RED CELL DISTRIBUTION WIDTH 15.5 % (11.5-14.5)
[2024-06-07 06:32] LABS: ALBUMIN 2.6 G/DL (3.4-5.0); ANION GAP 2 (8-16); BLOOD UREA NITROGEN 7 MG/DL (7-18); BUN/CREATININE RATIO 14.6 (10.0-20.0); CALCIUM 8.9 MG/DL (8.5-10.1); CHLORIDE 108 MMOL/L (99-107); CREATININE 0.48 MG/DL (0.40-0.90); GLUCOSE 132 MG/DL (70-104); POTASSIUM 4.6 MMOL/L (3.5-5.1); SODIUM 144 MMOL/L (135-145); TOTAL CARBON DIOXIDE 34.2 MMOL/L (24-32); eCRCL 87 ML/MIN; eGFR > 90 ML/MIN
[2024-06-07] MEDS: furosemide 20MG tablet PO SCH (07:46)
[2024-06-07 08:00] VITALS: RESP 18; O2SAT 98
[2024-06-07 10:00] VITALS: BP_SYST 3; BP_SYST 99; BP_DIAS 60; PULSE 79; RESP 16; TEMP 98.6; O2SAT 96
[2024-06-07] MEDS: FLU VACC TS2024-25(6MOS UP)/PF 45 MCG/0.5 ML SYRINGE IMVAC ONE (10:58)
[2024-06-07] MEDS: furosemide 20 MG/2 ML vial IV ONE (12:46)
[2024-06-07 18:00] VITALS: BP_SYST 106; BP_SYST 99; BP_DIAS 59; BP_DIAS 65; PULSE 92; RESP 13; RESP 14; TEMP 96.7; TEMP 98.1; O2SAT 93; O2SAT 97
[2024-06-07] MEDS: furosemide 20 MG/2 ML vial IV SCH (19:21)
[2024-06-07 22:00] VITALS: PULSE 92; RESP 13; TEMP 98.1; O2SAT 93
[2024-06-08 06:00] VITALS: BP 102/62; PULSE 79; RESP 15; TEMP 97.3; O2SAT 99
[2024-06-08 06:20] LABS: BASOPHILS % (AUTO) 0.5 % (0-1); EOSINOPHILS # (AUTO) 0.1 X10'3 (0-0.9); EOSINOPHILS % (AUTO) 3.8 % (0-6); HEMATOCRIT 34.5 % (35.0-45.0); HEMOGLOBIN 11.6 g/dl (12.0-16.0); LYMPHOCYTES # (AUTO) 0.7 X10'3 (1.1-4.8); LYMPHOCYTES % (AUTO) 17.5 % (21-51); MEAN CORPUSCULAR HEMOGLOBIN 31.7 PG (27.0-31.0); MEAN CORPUSCULAR HGB CONC 33.5 g/dL (33.0-36.5); MEAN CORPUSCULAR VOLUME 94.7 FL (78-98); MEAN PLATELET VOLUME 9.3 FL (7.4-10.4); MONOCYTES # (AUTO) 0.4 X10'3 (0-0.9); MONOCYTES % (AUTO) 11.4 % (2-12); NEUTROPHILS # (AUTO) 2.5 X10'3 (1.8-7.7); NEUTROPHILS % (AUTO) 66.8 % (42-75); PLATELET COUNT 123 X10'3 (140-440); RED BLOOD COUNT 3.65 X10'6 (4.20-5.60); RED CELL DISTRIBUTION WIDTH 15.1 % (11.5-14.5); WHITE BLOOD COUNT 3.7 X10'3 (4.5-11.0)
[2024-06-08 06:40] LABS: ALBUMIN 2.5 G/DL (3.4-5.0); ANION GAP -1 (8-16); BLOOD UREA NITROGEN 14 MG/DL (7-18); BUN/CREATININE RATIO 30.4 (10.0-20.0); CALCIUM 9.5 MG/DL (8.5-10.1); CHLORIDE 104 MMOL/L (99-107); CREATININE 0.46 MG/DL (0.40-0.90); GLUCOSE 102 MG/DL (70-104); POTASSIUM 4.7 MMOL/L (3.5-5.1); SODIUM 143 MMOL/L (135-145); eCRCL 91 ML/MIN; eGFR > 90 ML/MIN
[2024-06-08 06:54] LABS: TOTAL CARBON DIOXIDE 40.4 MMOL/L (24-32)
[2024-06-08 08:00] VITALS: RESP 16; O2SAT 96
[2024-06-08 09:24] VITALS: BP 96/58; PULSE 91; RESP 15; TEMP 97.3; O2SAT 99
[2024-06-08 10:00] VITALS: BP 105/60; PULSE 75; RESP 16; TEMP 98.3; O2SAT 96
== END 2024-06-08 16:03 | DRG 291 ==
LOC: ER 14:10 → ED HOLD 17:10 → OBSVTOIN 17:10 → ORTHO 4S 06-06 07:16
PROVIDERS: ADMIT Internal Medicine; ATTEND Internal Medicine
DX: I50.33 Acute on chronic diastolic (congestive) heart failure (principal); J96.01 Acute respiratory failure with hypoxia; E87.0 Hyperosmolality and hypernatremia; F32.A Depression, unspecified; I48.91 Unspecified atrial fibrillation; G47.30 Sleep apnea, unspecified; E86.0 Dehydration; Z88.2 Allergy status to sulfonamides; Z79.899 Other long term (current) drug therapy
CPT/HCPCS: 36415; 71045; 80048; 80076; 81003; 82550; 83735; 83880; 85025; 87081; 90686; 93005; 93306; 96360; 97110; 97116; 97161; 97530; 97535; 99285; A4353; A6212; A6213; A6250; C1758; G0378; J1650; J1940; J3490; J7030; J7040; J7120

== ENCOUNTER 2024-06-12 14:13 | Inpatient (IN) | payer MEDICAID, OTHER ==
[~2024-06-12] VITALS: Ht 172.7 cm; Wt 63.6 kg
[~2024-06-12 14:13] MED LIST changes: -HYDR-3972 PO; -METO-395 PO; -MIDO2.5T3 PO; -tamsulosin capsule PO
[2024-06-12 14:34] VITALS: PULSE 113; RESP 29; O2SAT 95
[2024-06-12 14:37] LABS: BASOPHILS % (AUTO) 0.6 % (0-1); LYMPHOCYTES # (AUTO) 3.4 X10'3 (1.1-4.8); LYMPHOCYTES % (AUTO) 48.5 % (21-51); MONOCYTES # (AUTO) 0.5 X10'3 (0-0.9); NEUTROPHILS # (AUTO) 2.9 X10'3 (1.8-7.7)
[2024-06-12 14:38] LABS: EOSINOPHILS # (AUTO) 0.2 X10'3 (0-0.9); EOSINOPHILS % (AUTO) 2.3 % (0-6); HEMOGLOBIN 12.7 g/dl (12.0-16.0); MEAN CORPUSCULAR HEMOGLOBIN 31.2 PG (27.0-31.0); MEAN CORPUSCULAR HGB CONC 31.7 g/dL (33.0-36.5); MEAN CORPUSCULAR VOLUME 98.4 FL (78-98); MEAN PLATELET VOLUME 9.1 FL (7.4-10.4); MONOCYTES % (AUTO) 7.4 % (2-12); NEUTROPHILS % (AUTO) 41.2 % (42-75); PLATELET COUNT 221 X10'3 (140-440); RED BLOOD COUNT 4.06 X10'6 (4.20-5.60); RED CELL DISTRIBUTION WIDTH 15.6 % (11.5-14.5)
[2024-06-12 14:45] LABS: ABG BASE EXCESS 18.7 mmol/L (-2.0-3.0); ABG HCO3 52.5 mmol/L (21.0-28.0); ABG OXYGEN SATURATION 93.3 % (94.0-98.0); ABG PCO2 (T) 126.5 mmHg (32.0-45.0); ABG PO2 (T) 73.9 mmHg (83.0-108.0); ALLEN'S TEST POSITIVE; FCOHb 0.5 % (0.5-1.5); FHHb 6.7 % (0.0-5.0); FMetHb 0.1 % (0.0-1.5); FO2Hb 92.7 % (94.0-98.0); MODE AVAPS; PATIENT TEMPERATURE 35.9; RESPIRATORY RATE 20 b/min; TIDAL VOLUME 400 mL; TOTAL HEMOGLOBIN 12.9 G/dl (12.0-16.0)
[2024-06-12 14:56] LABS: ALANINE AMINOTRANSFERASE 58 U/L (12-78); ALBUMIN 2.9 G/DL (3.4-5.0); ALBUMIN/GLOBULIN RATIO 0.8 (1.1-1.5); ALKALINE PHOSPHATASE 108 IU/L (46-116); ASPARTATE AMINO TRANSFERASE 79 U/L (10-37); BILIRUBIN,TOTAL 0.6 MG/DL (0.1-1.0); BLOOD UREA NITROGEN 11 MG/DL (7-18); CALCIUM 9.7 MG/DL (8.5-10.1); CHLORIDE 102 MMOL/L (99-107); CREATININE 0.61 MG/DL (0.40-0.90); GLUCOSE 185 MG/DL (70-104); POTASSIUM 4.6 MMOL/L (3.5-5.1); PRO BRAIN NATRIURETIC PEPTIDE 2547 PG/ML (0-125); SODIUM 144 MMOL/L (135-145); TOTAL PROTEIN 6.4 G/DL (6.4-8.2); eCRCL 96 ML/MIN; eGFR > 90 ML/MIN
[2024-06-12] MEDS: furosemide 10 MG/1 ML 10ml inj IV ONE (14:57)
[2024-06-12 15:06] LABS: ANION GAP -4 (8-16)
[2024-06-12 15:07] LABS: TOTAL CARBON DIOXIDE 45.7 MMOL/L (24-32)
[2024-06-12 15:31] LABS: ABG BASE EXCESS 10.1 mmol/L (-2.0-3.0); ABG HCO3 38.1 mmol/L (21.0-28.0); ABG OXYGEN SATURATION 96.8 % (94.0-98.0); ABG PCO2 (T) 66.4 mmHg (32.0-45.0); ABG PH (T) 7.372 (7.350-7.450); ABG PO2 (T) 90.4 mmHg (83.0-108.0); ALLEN'S TEST POSITIVE; FCOHb 0.3 % (0.5-1.5); FHHb 3.2 % (0.0-5.0); FMetHb 0.3 % (0.0-1.5); FO2Hb 96.2 % (94.0-98.0); MODE AVAPS; PATIENT TEMPERATURE 36.1; RESPIRATORY RATE 20 b/min; TIDAL VOLUME 400 mL; TOTAL HEMOGLOBIN 12.5 G/dl (12.0-16.0)
[2024-06-12 15:37] VITALS: PULSE 109; RESP 18; O2SAT 98
[2024-06-12] MEDS ORDERED: ondansetron/PF 4mg/2ml inj IV PRN (16:15)
[2024-06-12] MEDS ORDERED: diphenhydrAMINE 50 mg/ml inj IV PRN (16:15)
[2024-06-12] MEDS ORDERED: ondansetron 4mg rapidly disintigrating tab PO PRN (16:15)
[2024-06-12] MEDS ORDERED: magnesium hydroxide 30ml (MOM) UD suspension PO PRN (16:15)
[2024-06-12] MEDS ORDERED: acetaminophen 650mg rectal suppository RC PRN (16:15)
[2024-06-12] MEDS ORDERED: acetaminophen 325mg tablet PO PRN (16:15)
[2024-06-12] MEDS ORDERED: bisacodyl 10mg suppository rectal RC PRN (16:15)
[2024-06-12] MEDS ORDERED: diphenhydrAMINE 25mg capsule PO PRN (16:15)
[2024-06-12] MEDS ORDERED: mag hydrox/Alum hydrox/simeth 30ml oral suspension PO PRN (16:15)
[2024-06-12] MEDS: ampicillin/sulbac 3gm/NS 100ml 100 ML IV STA (16:18)
[2024-06-12 16:42] LABS: APTT 23 SECONDS (22-32); PROTHROMBIN TIME 10.2 SECONDS (9.0-12.0)
[2024-06-12] MEDS ORDERED: FURO-150 PO (16:56)
[2024-06-12 17:04] LABS: D-DIMER 2.25 MG/L FEU (0-0.50)
[2024-06-12 17:17] LABS: HEMOGLOBIN A1C 5.4 % (4.5-6.2)
[2024-06-12 17:24] LABS: MAGNESIUM 3.2 MG/DL (1.5-2.4); PHOSPHORUS 6.1 MG/DL (2.3-4.5); THYROID STIMULATING HORMONE 4.26 ulU/ml (0.34-4.50)
[2024-06-12] MEDS: normal saline 1000ml 1,000 ML IV SCH (17:25)
[2024-06-12] MEDS: docusate sod 100mg capsule PO SCH (20:11)
[2024-06-12] MEDS: heparin, porcine 5000 units/ml vial SQ SCH (20:12)
[2024-06-12 20:40] LABS: BILIRUBIN,URINE NEGATIVE (Neg); CLARITY,URINE CLEAR (Clear); COLOR,URINE YELLOW (Yellow); GLUCOSE, URINE NEGATIVE (Neg); KETONES,URINE NEGATIVE (Neg); LEUKOCYTE ESTERASE ,URINE NEGATIVE (Neg); OCCULT BLOOD,URINE TRACE-INTACT (Neg); PROTEIN,URINE NEGATIVE (Neg); UROBILINOGEN,URINE 0.2 E.U/dL (0.2-1.0)
[2024-06-12 20:46] LABS: BACTERIA,URINE FEW /HPF (Neg); NITRITES, URINE NEGATIVE (Neg); RBC,URINE 0-2 /HPF (0-2); SQUAMOUS EPITHELIAL CELL,UR FEW /LPF (FEW); UA COLLECTION TYPE FOLEY CATH
[2024-06-12 20:47] LABS: WBC,URINE 0-4 /HPF (0-4)
[2024-06-12 23:08] VITALS: PULSE 99; RESP 18; O2SAT 97
[2024-06-13 02:33] LABS: BASOPHILS % (AUTO) 0.1 % (0-1); EOSINOPHILS % (AUTO) 0.2 % (0-6); HEMOGLOBIN 12.3 g/dl (12.0-16.0); LYMPHOCYTES # (AUTO) 0.4 X10'3 (1.1-4.8); LYMPHOCYTES % (AUTO) 5.9 % (21-51); MEAN CORPUSCULAR HEMOGLOBIN 31.8 PG (27.0-31.0); MEAN CORPUSCULAR HGB CONC 33.2 g/dL (33.0-36.5); MEAN CORPUSCULAR VOLUME 95.8 FL (78-98); MONOCYTES # (AUTO) 0.3 X10'3 (0-0.9); MONOCYTES % (AUTO) 4.2 % (2-12); NEUTROPHILS # (AUTO) 6.6 X10'3 (1.8-7.7); NEUTROPHILS % (AUTO) 89.6 % (42-75); PLATELET COUNT 139 X10'3 (140-440); RED BLOOD COUNT 3.87 X10'6 (4.20-5.60); RED CELL DISTRIBUTION WIDTH 15.3 % (11.5-14.5); WHITE BLOOD COUNT 7.3 X10'3 (4.5-11.0)
[2024-06-13 02:41] LABS: ALANINE AMINOTRANSFERASE 53 U/L (12-78); ALBUMIN 2.7 G/DL (3.4-5.0); ALBUMIN/GLOBULIN RATIO 0.7 (1.1-1.5); ALKALINE PHOSPHATASE 101 IU/L (46-116); ASPARTATE AMINO TRANSFERASE 63 U/L (10-37); BILIRUBIN,TOTAL 0.6 MG/DL (0.1-1.0); BLOOD UREA NITROGEN 15 MG/DL (7-18); BUN/CREATININE RATIO 31.3 (10.0-20.0); CHLORIDE 100 MMOL/L (99-107); CHOL/HDL RATIO 1.8 (0.00-4.99); CHOLESTEROL 169 MG/DL (0-200); CREATININE 0.48 MG/DL (0.40-0.90); GLUCOSE 127 MG/DL (70-104); HDL CHOLESTEROL 95 MG/DL (35-60); POTASSIUM 4.2 MMOL/L (3.5-5.1); SODIUM 144 MMOL/L (135-145); TOTAL PROTEIN 6.6 G/DL (6.4-8.2); TRIGLYCERIDES 173 MG/DL (20-135); eCRCL 122 ML/MIN; eGFR > 90 ML/MIN
[2024-06-13 02:46] LABS: LDL CHOLESTEROL 60 MG/DL (50-100)
[2024-06-13 03:08] LABS: ANION GAP -2 (8-16)
[2024-06-13 03:10] LABS: TOTAL CARBON DIOXIDE 46.4 MMOL/L (24-32)
[2024-06-13 05:33] LABS: ABG BASE EXCESS 21.9 mmol/L (-2.0-3.0); ABG HCO3 52.4 mmol/L (21.0-28.0); ABG OXYGEN SATURATION 94.3 % (94.0-98.0); ABG PCO2 (T) 93.5 mmHg (32.0-45.0); ABG PH (T) 7.363 (7.350-7.450); ALLEN'S TEST Modified; FCOHb 0.2 % (0.5-1.5); FHHb 5.7 % (0.0-5.0); FLOW 4 L/min; FO2Hb 94.1 % (94.0-98.0); MODE NASAL CANNULA; PATIENT TEMPERATURE 36.2; TOTAL HEMOGLOBIN 12.1 G/dl (12.0-16.0)
[2024-06-13] MEDS: pantoprazole 40mg Tablet.DR PO SCH (07:30)
[2024-06-13] MEDS: CefTRIAXone/D5W-Rocephin 1gm 50 ML IV SCH (07:42)
[2024-06-13] MEDS: azithromycin/NS 500mg/250ml 250 ML IV SCH (08:02)
[2024-06-13 15:00] VITALS: BP 97/56; PULSE 105; RESP 26; TEMP 97.4; O2SAT 100
[2024-06-13 16:55] VITALS: RESP 26; O2SAT 100
[2024-06-13 18:00] VITALS: BP 101/59; PULSE 99; RESP 21; TEMP 97; O2SAT 97
[2024-06-13 18:10] VITALS: PULSE 96; RESP 20; O2SAT 96
[2024-06-13 20:00] VITALS: RESP 21; O2SAT 95
[2024-06-13 22:00] VITALS: BP 107/70; PULSE 110; RESP 28; TEMP 97.3; O2SAT 93
[2024-06-14] VITALS (14 sets, daily range): BP systolic 96–139; BP diastolic 59–82; PULSE 92–120; RESP 18–30; TEMP 97–98.2; O2SAT 91–100
[2024-06-14 06:51] LABS: BASOPHILS % (AUTO) 0.1 % (0-1); EOSINOPHILS % (AUTO) 0.4 % (0-6); HEMATOCRIT 36.6 % (35.0-45.0); HEMOGLOBIN 11.7 g/dl (12.0-16.0); LYMPHOCYTES # (AUTO) 0.7 X10'3 (1.1-4.8); LYMPHOCYTES % (AUTO) 10.1 % (21-51); MEAN CORPUSCULAR HEMOGLOBIN 31.3 PG (27.0-31.0); MEAN CORPUSCULAR HGB CONC 31.9 g/dL (33.0-36.5); MEAN CORPUSCULAR VOLUME 98.1 FL (78-98); MEAN PLATELET VOLUME 9.3 FL (7.4-10.4); MONOCYTES # (AUTO) 0.3 X10'3 (0-0.9); MONOCYTES % (AUTO) 4.9 % (2-12); NEUTROPHILS # (AUTO) 5.7 X10'3 (1.8-7.7); NEUTROPHILS % (AUTO) 84.5 % (42-75); PLATELET COUNT 125 X10'3 (140-440); RED BLOOD COUNT 3.73 X10'6 (4.20-5.60); RED CELL DISTRIBUTION WIDTH 15.6 % (11.5-14.5); WHITE BLOOD COUNT 6.8 X10'3 (4.5-11.0)
[2024-06-14 07:19] LABS: ALANINE AMINOTRANSFERASE 49 U/L (12-78); ALBUMIN 2.4 G/DL (3.4-5.0); ALBUMIN/GLOBULIN RATIO 0.6 (1.1-1.5); ALKALINE PHOSPHATASE 103 IU/L (46-116); ASPARTATE AMINO TRANSFERASE 48 U/L (10-37); BILIRUBIN,TOTAL 0.5 MG/DL (0.1-1.0); BLOOD UREA NITROGEN 12 MG/DL (7-18); BUN/CREATININE RATIO 33.3 (10.0-20.0); CHLORIDE 101 MMOL/L (99-107); CREATININE 0.36 MG/DL (0.40-0.90); GLUCOSE 109 MG/DL (70-104); POTASSIUM 4.3 MMOL/L (3.5-5.1); SODIUM 142 MMOL/L (135-145); TOTAL PROTEIN 6.2 G/DL (6.4-8.2); eCRCL 163 ML/MIN; eGFR > 90 ML/MIN
[2024-06-14 07:52] LABS: ANION GAP 1 (8-16); CALCIUM 9.3 MG/DL (8.5-10.1)
[2024-06-14 07:55] LABS: TOTAL CARBON DIOXIDE 40.4 MMOL/L (24-32)
[2024-06-14] MEDS: methylPREDNISolone sod succ 125mg/2ml vial IV SCH (08:15)
[2024-06-14 08:56] LABS: LACTATE DEHYDROGENASE 208 U/L (81-234)
[2024-06-14] MEDS: ipratropium/albuterol 3ml nebule NEB PRN (15:56)
[2024-06-14] MEDS: budesonide 0.5mg/2ml UD nebule IH SCH (15:56)
[2024-06-14] MEDS: lactose-reduced food (Ensure Enlive) - 237ml bottle PO SCH (18:00)
[2024-06-15] VITALS (10 sets, daily range): BP systolic 105–126; BP diastolic 51–83; PULSE 99–118; RESP 12–29; TEMP 96.3–98.1; O2SAT 94–99
[2024-06-15] MEDS: HYDROcodone/acetaminophen 5mg/325mg tablet PO PRN (05:51)
[2024-06-15 06:54] LABS: BASOPHILS % (AUTO) 0 % (0-1); EOSINOPHILS % (AUTO) 0 % (0-6); HEMATOCRIT 34.6 % (35.0-45.0); HEMOGLOBIN 11.3 g/dl (12.0-16.0); LYMPHOCYTES # (AUTO) 0.3 X10'3 (1.1-4.8); LYMPHOCYTES % (AUTO) 4.6 % (21-51); MEAN CORPUSCULAR HEMOGLOBIN 31.9 PG (27.0-31.0); MEAN CORPUSCULAR HGB CONC 32.8 g/dL (33.0-36.5); MEAN CORPUSCULAR VOLUME 97.2 FL (78-98); MEAN PLATELET VOLUME 9.3 FL (7.4-10.4); MONOCYTES # (AUTO) 0.1 X10'3 (0-0.9); MONOCYTES % (AUTO) 2.6 % (2-12); NEUTROPHILS # (AUTO) 5.3 X10'3 (1.8-7.7); NEUTROPHILS % (AUTO) 92.8 % (42-75); PLATELET COUNT 165 X10'3 (140-440); RED BLOOD COUNT 3.56 X10'6 (4.20-5.60); RED CELL DISTRIBUTION WIDTH 15.4 % (11.5-14.5); WHITE BLOOD COUNT 5.7 X10'3 (4.5-11.0)
[2024-06-15 07:52] LABS: ALANINE AMINOTRANSFERASE 48 U/L (12-78); ALBUMIN 2.7 G/DL (3.4-5.0); ALBUMIN/GLOBULIN RATIO 0.7 (1.1-1.5); ALKALINE PHOSPHATASE 106 IU/L (46-116); ASPARTATE AMINO TRANSFERASE 32 U/L (10-37); BILIRUBIN,TOTAL 0.6 MG/DL (0.1-1.0); BLOOD UREA NITROGEN 13 MG/DL (7-18); CALCIUM 9.6 MG/DL (8.5-10.1); CHLORIDE 100 MMOL/L (99-107); GLUCOSE 145 MG/DL (70-104); POTASSIUM 4.6 MMOL/L (3.5-5.1); SODIUM 145 MMOL/L (135-145); TOTAL PROTEIN 6.7 G/DL (6.4-8.2); eCRCL 117 ML/MIN; eGFR > 90 ML/MIN
[2024-06-15 07:54] LABS: ANION GAP -1 (8-16)
[2024-06-15 08:08] LABS: TOTAL CARBON DIOXIDE 45.7 MMOL/L (24-32)
[2024-06-15] MEDS ORDERED: PRED10TA23 PO (10:12)
[2024-06-15] MEDS ORDERED: CEFD300C3 PO (10:12)
[2024-06-15] MEDS ORDERED: ASPI81TA52 PO (10:12)
[2024-06-15 10:56] LABS: ABG PH (T) 6.971 (7.350-7.450); ABG PO2 (T) 90.5 mmHg (83.0-108.0); ALLEN'S TEST POSITIVE; FCOHb 0.9 % (0.5-1.5); FHHb 5.9 % (0.0-5.0); FLOW 4 L/min; FMetHb 0.3 % (0.0-1.5); FO2Hb 92.9 % (94.0-98.0); MODE NC; PATIENT TEMPERATURE 36.7; TOTAL HEMOGLOBIN 12.9 G/dl (12.0-16.0)
[2024-06-15] MEDS: morphine 2 MG/ML inj. syringe IV PRN ×2 (16:25→17:18)
[2024-06-15] MEDS: LORazepam 2 mg/ml vial IV PRN (17:19)
== END 2024-06-15 21:45 | DRG 720 ==
LOC: ER 14:13 → ED HOLD 16:20 → PCU 3S 06-13 10:00
PROVIDERS: ADMIT Family Medicine; ATTEND Family Medicine
PROC: 5A09357 Assistance with Respiratory Ventilation, Less than 24 Consecutive Hours, Continuous Positive Airway Pressure (ICD-10-PCS; principal; 2024-06-12)
PROC: 0W993ZZ Drainage of Right Pleural Cavity, Percutaneous Approach (ICD-10-PCS; 2024-06-13)
PROC: 5A09357 Assistance with Respiratory Ventilation, Less than 24 Consecutive Hours, Continuous Positive Airway Pressure (ICD-10-PCS; 2024-06-15)
DX: A41.9 Sepsis, unspecified organism (principal); J96.21 Acute and chronic respiratory failure with hypoxia; I46.9 Cardiac arrest, cause unspecified; G93.41 Metabolic encephalopathy; J18.9 Pneumonia, unspecified organism; E87.4 Mixed disorder of acid-base balance; E88.09 Other disorders of plasma-protein metabolism, not elsewhere classified; I50.32 Chronic diastolic (congestive) heart failure; I27.20 Pulmonary hypertension, unspecified; Z66 Do not resuscitate; J44.1 Chronic obstructive pulmonary disease with (acute) exacerbation; Z20.822 Contact with and (suspected) exposure to COVID-19; G47.33 Obstructive sleep apnea (adult) (pediatric); G71.00 Muscular dystrophy, unspecified; I48.91 Unspecified atrial fibrillation; J44.0 Chronic obstructive pulmonary disease with (acute) lower respiratory infection; F10.20 Alcohol dependence, uncomplicated; F32.A Depression, unspecified; Z79.899 Other long term (current) drug therapy; Z88.2 Allergy status to sulfonamides; Z86.73 Personal history of transient ischemic attack (TIA), and cerebral infarction without residual deficits; Z99.81 Dependence on supplemental oxygen; Z51.5 Encounter for palliative care
CPT/HCPCS: 36415; 36600; 71045; 71250; 76604; 80053; 80061; 81001; 82803; 83036; 83605; 83615; 83735; 83880; 84100; 84443; 84484; 85018; 85025; 85379; 85610; 85730; 87040; 87081; 87502; 87503; 87811; 92508; 92616; 93005; 94640; 94760; 97110; 97116; 97161; 97530; 99291; A4615; A4620; A5200; A6213; C1758; G0378; J0295; J0456; J0696; J1644; J1940; J2060; J2270; J2919; J7030